=== PATIENT | female | born 1960 | race Caucasian/White ===

== ENCOUNTER 2017-02-28 13:58 | Emergency (ER) | payer MEDICARE, MEDICAID ==
[~2017-02-28] VITALS: Ht 172.7 cm; Wt 76.8 kg
[2017-02-28 14:02] VITALS: Ht 172.7 cm; Wt 76.8 kg
[2017-02-28] MEDS ORDERED: HYDROCODONE/APAP (10/325) TAB PO ONE (15:00)
--- NOTE | 2017-02-28 15:46 | RADRPT ---
PROCEDURE: CT Brain without contrast. CLINICAL INDICATION: Pain, headache TECHNIQUE: Routine CT scan of the brain was performed on a high resolution multi detector scanner without intravenous contrast. One or more of the following dose reduction techniques were used: Auto mated exposure control; Adjustment of the mA and/or kV according to patient size; Use of iterative r econstruction technique. CTDI = 41 mGy. DLP = 720 mGy-cm. COMPARISON: No prior relevant examinations are available for comparison. FINDINGS: Hemorrhage: No evidence of intracranial hemorrhage. Acute ischemic changes: No evidence of acute ischemic changes. Mass effect/Midline shift: None. Parenchymal volume: Within normal limits for age. Ventricular system: Concordant with parenchymal volume. Chronic changes: Mild chronic-appearing microvascular ischemic changes of the supratentorial white m atter. Atherosclerotic calcifications of the cavernous portions of both internal carotid arteries ar e present. Extracranial soft tissues: Unremarkable. Calvarium: No fractures. Paranasal sinuses: Visualized paranasal sinuses are clear. Mastoid air cells: Visualized mastoid air cells are clear. IMPRESSION: No acute intracranial abnormalities. Mild chronic-appearing microvascular ischemic changes of the supratentorial white matter. RPTAT: AADD .Rashid Gaytan MD, Date Time Electronically viewed and signed by .Rashid Gaytan MD, on 02/28/2017 15:46 .B/
--- NOTE | 2017-02-28 16:06 | RADRPT ---
PROCEDURE: XR Sacrum and Coccyx. CLINICAL INDICATION: Trauma due to a fall. Sacrum and coccyx pain. TECHNIQUE: 3 views. AP, AP oblique, and lateral views of the sacrum and coccyx were performed. COMPARISON: No prior studies are available for comparison. FINDINGS: There is normal sacral and coccygeal mineralization and alignment. No fracture or subluxation is see n. The sacroiliac joints appear normal. The soft tissues are unremarkable. There are degenerative ch anges at L5-S1 with disk space narrowing, osteophytes, and endplate sclerosis. IMPRESSION: 1. Degenerative changes at L5-S1. 2. Otherwise unremarkable images of the sacrum and coccyx. RPTAT: QQ .Ferny Torrez MD, MD Date Time Electronically viewed and signed by .Ferny Torrez MD, on 02/28/2017 16:06 .R/
[2017-02-28] MEDS ORDERED: HYDR-902 PO (16:23)
--- NOTE | 2017-02-28 16:26 | ERD ---
ER Documentation Chief Complaint Date/Time DATE: 02/28/17 TIME: 16:25 Chief Complaint LOWER BACK PAIN HEAD PAIN NO LOC S/P MECHANICAL FALL HPI This 56-year-old female slipped on a wet floor in a store today. She fell backwards and landed on her sacrum. She also hit the back of her head. There is no history of loss of consciousness, vomiting, weakness, neck pain. Pain is primarily in her tailbone and her occipital area. ROS All systems reviewed and are negative except as per history of present illness. Medications Home Meds Active Scripts Hydrocodone/Acetaminophen (Bennet 10-325 Tablet) 1 Each Tablet, 1 TAB PO Q6H Y for PAIN, #7 TAB Prov:LANCE HOWARD MD 02/28/17 Allergies Allergies: Coded Allergies: No Known Allergy (Unverified , 02/28/17) PMhx/Soc History of Surgery: Yes (gallbladder, humerus, ulna, cesarian) Anesthesia Reaction: No Hx Neurological Disorder: No Hx Respiratory Disorders: No Hx Cardiac Disorders: Yes (HTN) Hx Psychiatric Problems: No Hx Miscellaneous Medical Probl: Yes (degenerative disk disease, fibromyalgia, hypothroidism, DM II) Hx Alcohol Use: No Hx Substance Use: Yes (marijuana) Hx Tobacco Use: No Physical Exam Vitals Vital Signs Date Time Temp Pulse Resp B/P Pulse Ox O2 Delivery O2 Flow Rate FiO2 02/28/17 14:02 99.4 79 20 141/68 98 Physical Exam Const: [] Head: Atraumatic Eyes: Normal Conjunctiva ENT: Normal External Ears, Nose and Mouth. Neck: Full range of motion..~ No meningismus. Resp: Clear to auscultation bilaterally Cardio: Regular rate and rhythm, no murmurs Abd: Soft, non tender, non distended. Normal bowel sounds Skin: No petechiae or rashes Back: No midline or flank tenderness Ext: No cyanosis, or edema Neur: Awake and alert Psych: Normal Mood and Affect Results 24 hrs Current Medications Medications (Trade) Dose Ordered Sig/Bubba Route PRN Reason Start Time Stop Time Status Last Admin Dose Admin Acetaminophen/ Hydrocodone Bitart (Bennet (10/325)) 1 tab ONCE ONCE PO 02/28/17 15:00 02/28/17 15:01 DC 02/28/17 15:10 Hydromorphone HCl (Dilaudid) 1 mg ONCE STAT IM 02/28/17 16:41 02/28/17 16:42 DC Procedures/MDM CT brain was performed which was read as having no acute findings according to the radiologist X-ray Coccyx 3V Interpreted by me: Bones: No fracture or lytic lesions Joints: No dislocation Foreign body: None. Impression-normal two-view sacrum and coccyx. Patient is given Bennet 10 mg by mouth. Patient presents after mechanical fall today. With signs and symptoms of a coccyx contusion or sprain and head injury without evidence of bleeding, fracture. There is no signs of neck injury or neurologic deficit. Patient complains of severe pain despite Bennet and is administered Dilaudid 1 mg IM by request. Patient is a chronic pain patient was advised to follow-up with her pain management doctor for short-term increase on her pain despite prescription given. Patient was discharged home with a short course of Bennet and observation at home. The patient was stable with no new complaints during the ER course. Clinically, there is no current evidence to suggest meningitis, sepsis, acute abdomen, pneumonia, acute coronary syndrome, pulmonary embolism, or any other emergent condition appearing to require further evaluation or hospitalization. The patient should certainly return for any new or worsening symptoms per the aftercare instructions. They should otherwise follow-up with her primary care doctor for reevaluation this week. Departure Diagnosis: Primary Impression: Head injury Encounter type: initial encounter Qualified Code: S09.90XA - Head injury, initial encounter Additional Impression: Coccyx sprain Encounter type: initial encounter Qualified Code: S33.8XXA - Coccyx sprain, initial encounter Condition: Stable Patient Instructions: Contusion, Coccyx/Sacrum, HEAD INJURY, No Wake-Up (Adult) Additional Instructions: Examinations normal today. Recheck with primary doctor or return for new or worsening symptoms. LANCE HOWARD MD Feb 28, 2017 16:26
[2017-02-28] MEDS ORDERED: HYDROmorphONE 1 MG/ML SYG IM STA (16:41)
[2017-02-28 17:13] VITALS: BP 147/98; RESP 18
== END 2017-02-28 17:14 | disposition home or self-care (01) ==
LOC: FTE 13:58
DX: S09.90XA Unspecified injury of head, initial encounter (principal); S33.8XXA Sprain of other parts of lumbar spine and pelvis, initial encounter; I10 Essential (primary) hypertension; E11.9 Type 2 diabetes mellitus without complications; E03.9 Hypothyroidism, unspecified; R51 Headache; W18.09XA Striking against other object with subsequent fall, initial encounter; Y92.9 Unspecified place or not applicable
CPT/HCPCS: 70450; 72220; 96372; 99285; J1170

== ENCOUNTER 2018-04-27 18:08 | Emergency (ER) | END 2018-04-27 21:00 | disposition home or self-care (01) ==